=== PATIENT | female | born 1950 | race African-American/Black ===

== ENCOUNTER 2018-05-29 15:49 | Emergency (ER) | payer MEDICARE, MEDICAID ==
[~2018-05-29] VITALS: Ht 162.6 cm; Wt 63.0 kg
[~2018-05-29 15:49] MED LIST: AZIT250T12 PO; TRAM50TA PO
[2018-05-29 23:06] VITALS: BP 165/99
== END 2018-05-30 00:49 | disposition left against medical advice (07) ==
LOC: ER 15:49
DX: Z53.21 Procedure and treatment not carried out due to patient leaving prior to being seen by health care provider (principal)

== ENCOUNTER 2021-05-14 13:44 | Inpatient (IN) | payer BC, MEDICAID ==
[~2021-05-14] VITALS: Ht 162.6 cm; Wt 78.0 kg
[2021-05-14] MEDS ORDERED: LIDOCAINE HCL 4% CREAM 76GM TUBE TP STA (14:08)
[2021-05-14] MEDS ORDERED: SODIUM CHLORIDE 0.9% 1,000 ML IV ONE (14:15)
[2021-05-14 15:04] LABS: HEMOGLOBIN. 7.6 g/dL (12.0-16.0); MEAN CORPUSCULAR HEMOGLOBIN 26.7 pg (28.0-32.0); MEAN CORPUSCULAR VOLUME 84.4 fL (81.0-99.0); MEAN PLATELET VOLUME 8.3 fl (7.4-10.4); PLATELET 391 x1000/uL (130-400); RED BLOOD CELL COUNT 2.84 mill/uL (4.2-5.4); RED CELL DISTRIBUTION WIDTH 20.8 % (11.6-14.6)
[2021-05-14 15:51] LABS: CHLORIDE 99 mEq/L (98-107)
[2021-05-14 16:20] LABS: PLATELET ESTIMATE NORMAL
[2021-05-14 17:33] LABS: HEPATITIS B SURFACE ANTIGEN NEGATIVE
[2021-05-14] MEDS ORDERED: FUROSEMIDE 100MG/10ML VIAL IV STA (19:04)
[2021-05-14] MEDS ORDERED: DEXTROSE 50% WATER 50ML SYRINGE IV NR (19:15)
[2021-05-14] MEDS ORDERED: SODIUM BICARBONATE 8.4% 1 MEQ/ML 50ML SYR IV NR (19:15)
[2021-05-14] MEDS ORDERED: INSULIN REGULAR (HUMULIN R) 300UNITS/3ML VIAL IV NR (19:15)
[2021-05-14] MEDS ORDERED: SODIUM POLYSTYRENE SULFONATE 15 G/60 ML BOT PO NR (19:15)
[2021-05-14] MEDS ORDERED: ALBUTEROL (0.083%) 2.5MG/3ML NEB HHN NR (19:15)
[2021-05-15] MEDS ORDERED: CEFTRIAXONE 1 G PREMIX 50 ML IV SCH
[2021-05-15] MEDS ORDERED: CEFTRIAXONE 1,000 MG in DEXTROSE 5% WATER 50 ML IV SCH (00:30)
[2021-05-15] MEDS ORDERED: VANCOMYCIN 1500MG in DEXTROSE 5% WATER 250ML IV NR (01:00)
[2021-05-15] MEDS ORDERED: CEFTRIAXONE SODIUM 1 G/VIAL ONE (01:03)
[2021-05-15] MEDS: PANTOPRAZOLE 40MG DR TABLET PO SCH (07:35)
[2021-05-15 08:00] VITALS: BP 112/60
[2021-05-15 11:01] VITALS: BP 112/60
[2021-05-15 12:00] VITALS: BP 131/73
[2021-05-15] MEDS ORDERED: CARV25TA47 PO (13:58)
[2021-05-15] MEDS ORDERED: SIMV-46 PO (14:00)
[2021-05-15] MEDS ORDERED: MECL-217 MT (14:11)
[2021-05-15] MEDS ORDERED: FURO80TA3 PO (14:11)
[2021-05-15] MEDS ORDERED: DILT180T11 PO (14:11)
[2021-05-15] MEDS ORDERED: METR-167 MT (14:13)
[2021-05-15] MEDS ORDERED: MONT10TA32 MT (14:14)
[2021-05-15] MEDS ORDERED: MECL-159 PO (14:16)
[2021-05-15] MEDS ORDERED: RIZA10TA97 PO (14:29)
[2021-05-15] MEDS ORDERED: *PATIENT'S OWN MEDICATION STORAGE XX SCH (14:30)
[2021-05-15 16:00] VITALS: BP 99/58
[2021-05-15 17:40] LABS: HEMATOCRIT. 23.2 % (36.0-48.0); HEMOGLOBIN. 7.5 g/dL (12.0-16.0); MEAN CORPUSCULAR HEMOGLOBIN 27.6 pg (28.0-32.0); MEAN CORPUSCULAR VOLUME 85.6 fL (81.0-99.0); MEAN PLATELET VOLUME 8.3 fl (7.4-10.4); PLATELET 432 x1000/uL (130-400); RED BLOOD CELL COUNT 2.71 mill/uL (4.2-5.4)
[2021-05-15 17:48] LABS: INR 1.3; PROTHROMBIN TIME 13.3 sec (9.6-11.0)
[2021-05-15 17:54] LABS: CREATINE KINASE MB FRACTION 2.4 ng/mL (0.5-3.6)
[2021-05-15 18:02] LABS: PLATELET ESTIMATE INCREASED
[2021-05-15 20:29] VITALS: BP 114/54
[2021-05-15] MEDS: CEFTRIAXONE 1,000 MG in DEXTROSE 5% WATER 50 ML IV SCH (23:39)
[2021-05-16] VITALS: BP 121/61
[2021-05-16 04:00] VITALS: BP 129/62
[2021-05-16 06:03] LABS: HEMOGLOBIN. 7.2 g/dL (12.0-16.0); MEAN CORPUSCULAR HEMOGLOBIN 26.5 pg (28.0-32.0); MEAN CORPUSCULAR VOLUME 84.8 fL (81.0-99.0); MEAN PLATELET VOLUME 8.5 fl (7.4-10.4); PLATELET 456 x1000/uL (130-400); RED BLOOD CELL COUNT 2.71 mill/uL (4.2-5.4)
[2021-05-16] MEDS: PANTOPRAZOLE 40MG DR TABLET PO SCH (06:42)
[2021-05-16 08:00] VITALS: BP_SYST 124; BP_SYST 88; BP_DIAS 54; BP_DIAS 57
[2021-05-16] MEDS ORDERED: HEPARIN 5000 UNITS/ML VIAL SUBCUT SCH (09:00)
[2021-05-16 11:32] LABS: BG BASE EXCESS -1.2 mmol/L (-2.0-2.0); BG CARBOXYHEMOGLOBIN 0.1 % (0.5-1.5); BG DEOXYHEMOGLOBIN 3.9 % (0.0-5.0); BG FRACTION INSPIRED OXYGEN 30; BG HCO3 ACT 24.5 mmol/L (22.0-26.0); BG METHEMOGLOBIN 0.6 % (0.0-1.5); BG OXYGEN SATURATION 96.1 % (92.0-98.5); BG OXYHEMOGLOBIN 95.4 % (94.0-97.0); BG PH 7.344 (7.350-7.450); BG PO2 95.9 mmHg (75.0-100.0); BG SAMPLE SITE RIGHT RADIAL; BG TOTAL HEMOGLOBIN 8.1 g/dL (12.0-18.0); BG VENT MODE NASAL CANNULA
[2021-05-16 12:00] VITALS: BP 135/63
[2021-05-16] MEDS ORDERED: ACETAMINOPHEN 325MG TABLET PO PRN (12:00)
[2021-05-16] MEDS ORDERED: LIDOCAINE HCL 1% 20ML VIAL (Pyxis) INJ ONE (14:23)
[2021-05-16] MEDS ORDERED: LIDOCAINE HCL 1% 30ML VIAL (10MG/ML) ONE (14:29)
[2021-05-16 15:09] LABS: PLATELET ESTIMATE SLIGHTLY INCREASED
[2021-05-16] MEDS ORDERED: BISACODYL 10MG SUPP PR PRN (15:30)
[2021-05-16] MEDS ORDERED: LORAZEPAM 2MG/ML CPJ IV PRN (15:30)
[2021-05-16] MEDS ORDERED: ONDANSETRON HCL 4MG/2ML INJ IV PRN (15:30)
[2021-05-16] MEDS ORDERED: IPRATROPIUM/ALBUTEROL 0.5-3(2.5)MG/3ML NEB HHN PRN (15:30)
[2021-05-16] MEDS ORDERED: DIPHENHYDRAMINE 50MG/ML VIAL IV PRN (15:30)
[2021-05-16 16:00] VITALS: BP 133/75
[2021-05-16] MEDS: PANTOPRAZOLE SODIUM 40 MG/VIAL IV SCH (16:11)
[2021-05-16 17:18] LABS: HEMATOCRIT 24.2 % (36.0-48.0); HEMOGLOBIN 7.5 g/dL (12.0-16.0)
[2021-05-16 20:00] VITALS: BP 128/57
[2021-05-16] MEDS: CARVEDILOL 6.25 MG TABLET PO SCH (21:37)
[2021-05-16] MEDS: EPOETIN ALFA-EPBX 10,000 UNIT/ML VIAL SUBCUT SCH (21:38)
[2021-05-16] MEDS ORDERED: VANCOMYCIN 750MG PREMIX 150 ML IV NR (22:00)
[2021-05-16] MEDS: CEFTRIAXONE 1,000 MG in DEXTROSE 5% WATER 50 ML IV SCH (23:42)
[2021-05-17] VITALS: BP 127/66
[2021-05-17 04:00] VITALS: BP 127/63
[2021-05-17 08:09] LABS: HEMATOCRIT. 24.5 % (36.0-48.0); HEMOGLOBIN. 7.7 g/dL (12.0-16.0); MEAN CORPUSCULAR HEMOGLOBIN 26.4 pg (28.0-32.0); MEAN CORPUSCULAR VOLUME 84.6 fL (81.0-99.0); PLATELET 497 x1000/uL (130-400); RED CELL DISTRIBUTION WIDTH 21.1 % (11.6-14.6)
[2021-05-17 08:17] VITALS: BP_SYST 126; BP_SYST 155; BP_DIAS 69; BP_DIAS 73
[2021-05-17] MEDS: CARVEDILOL 6.25 MG TABLET PO SCH (08:19)
[2021-05-17] MEDS: PANTOPRAZOLE SODIUM 40 MG/VIAL IV SCH ×2 (08:19→22:02)
[2021-05-17 08:24] LABS: PHOSPHORUS 8.3 mg/dL (2.5-4.9)
[2021-05-17 10:24] LABS: PLATELET ESTIMATE INCREASED
[2021-05-17] MEDS ORDERED: CARVEDILOL 3.125 MG TABLET PO NR (11:15)
[2021-05-17 12:00] VITALS: BP_SYST 132; BP_SYST 136; BP_DIAS 59; BP_DIAS 60
[2021-05-17] MEDS ORDERED: CALCIUM ACETATE 667MG CAPSULE PO SCH (12:15)
[2021-05-17 16:00] VITALS: BP_SYST 135; BP_SYST 149; BP_DIAS 62; BP_DIAS 68
[2021-05-17] MEDS ORDERED: IPRATROPIUM/ALBUTEROL 0.5-3(2.5)MG/3ML NEB HHN NR (16:03)
[2021-05-17 16:30] LABS: BG BASE EXCESS -1.7 mmol/L (-2.0-2.0); BG CARBOXYHEMOGLOBIN 0.3 % (0.5-1.5); BG DEOXYHEMOGLOBIN 1.3 % (0.0-5.0); BG FRACTION INSPIRED OXYGEN 36; BG HCO3 ACT 23.8 mmol/L (22.0-26.0); BG METHEMOGLOBIN 0.5 % (0.0-1.5); BG OXYGEN SATURATION 98.7 % (92.0-98.5); BG OXYHEMOGLOBIN 97.9 % (94.0-97.0); BG PCO2 43.7 mmHg (35.0-45.0); BG PH 7.354 (7.350-7.450); BG PO2 155.3 mmHg (75.0-100.0); BG SAMPLE SITE RIGHT BRACHIAL; BG TOTAL HEMOGLOBIN 8.3 g/dL (12.0-18.0); BG VENT MODE NASAL CANNULA
[2021-05-17 17:28] LABS: HEMATOCRIT 24.5 % (36.0-48.0); HEMOGLOBIN 7.8 g/dL (12.0-16.0)
[2021-05-17 17:58] LABS: CREATINE KINASE MB FRACTION 2.2 ng/mL (0.5-3.6)
[2021-05-17 20:00] VITALS: BP 149/86
[2021-05-17] MEDS ORDERED: CARVEDILOL 12.5MG TABLET PO SCH (21:00)
[2021-05-17] MEDS: IPRATROPIUM/ALBUTEROL 0.5-3(2.5)MG/3ML NEB HHN SCH (21:05)
[2021-05-17] MEDS: CALCIUM ACETATE 667MG CAPSULE PO SCH (22:02)
[2021-05-17] MEDS: METOPROLOL TARTRATE 25MG TABLET PO SCH (22:02)
[2021-05-18] VITALS (10 sets, daily range): BP systolic 108–157; BP diastolic 60–87
[2021-05-18] MEDS: CEFTRIAXONE 1,000 MG in DEXTROSE 5% WATER 50 ML IV SCH ×2 (00:09→23:58)
[2021-05-18] MEDS: IPRATROPIUM/ALBUTEROL 0.5-3(2.5)MG/3ML NEB HHN SCH ×4 (01:40→21:17)
[2021-05-18 07:58] LABS: HEMATOCRIT. 22.7 % (36.0-48.0); HEMOGLOBIN. 7.1 g/dL (12.0-16.0); MEAN CORPUSCULAR HEMOGLOBIN 26.3 pg (28.0-32.0); MEAN CORPUSCULAR VOLUME 84.2 fL (81.0-99.0); MEAN PLATELET VOLUME 8.3 fl (7.4-10.4); PLATELET 459 x1000/uL (130-400); RED CELL DISTRIBUTION WIDTH 20.7 % (11.6-14.6)
[2021-05-18] MEDS: METOPROLOL TARTRATE 25MG TABLET PO SCH ×2 (08:20→21:33)
[2021-05-18] MEDS: CALCIUM ACETATE 667MG CAPSULE PO SCH ×3 (08:20→17:41)
[2021-05-18] MEDS: PANTOPRAZOLE SODIUM 40 MG/VIAL IV SCH ×2 (08:20→17:00)
[2021-05-18 08:35] LABS: PHOSPHORUS 6.4 mg/dL (2.5-4.9)
[2021-05-18 09:18] LABS: PLATELET ESTIMATE INCREASED
[2021-05-18 11:58] LABS: BG BASE EXCESS 1.4 mmol/L (-2.0-2.0); BG CARBOXYHEMOGLOBIN 0.3 % (0.5-1.5); BG DEOXYHEMOGLOBIN 4.5 % (0.0-5.0); BG HCO3 ACT 25.8 mmol/L (22.0-26.0); BG METHEMOGLOBIN 0.3 % (0.0-1.5); BG OXYGEN SATURATION 95.5 % (92.0-98.5); BG OXYHEMOGLOBIN 94.9 % (94.0-97.0); BG PCO2 39.8 mmHg (35.0-45.0); BG PH 7.429 (7.350-7.450); BG PO2 80.9 mmHg (75.0-100.0); BG SAMPLE SITE RIGHT BRACHIAL; BG VENT MODE NASAL CANNULA
[2021-05-18 23:51] LABS: HEMATOCRIT 25.5 % (36.0-48.0); HEMOGLOBIN 8.2 g/dL (12.0-16.0)
[2021-05-19] VITALS: BP 143/66
[2021-05-19 00:05] LABS: INR 1.3; PROTHROMBIN TIME 13.3 sec (9.6-11.0)
[2021-05-19] MEDS: IPRATROPIUM/ALBUTEROL 0.5-3(2.5)MG/3ML NEB HHN SCH ×4 (01:35→20:05)
[2021-05-19 04:00] VITALS: BP 140/65
[2021-05-19 06:30] LABS: HEMATOCRIT. 26.5 % (36.0-48.0); HEMOGLOBIN. 8.5 g/dL (12.0-16.0); MEAN CORPUSCULAR HEMOGLOBIN 26.6 pg (28.0-32.0); MEAN PLATELET VOLUME 8.4 fl (7.4-10.4); PLATELET 464 x1000/uL (130-400); RED BLOOD CELL COUNT 3.19 mill/uL (4.2-5.4); RED CELL DISTRIBUTION WIDTH 20.9 % (11.6-14.6)
[2021-05-19 06:56] LABS: PHOSPHORUS 6.2 mg/dL (2.5-4.9)
[2021-05-19] MEDS: CALCIUM ACETATE 667MG CAPSULE PO SCH ×3 (07:15→17:50)
[2021-05-19 08:00] VITALS: BP 157/91
[2021-05-19] MEDS: PANTOPRAZOLE SODIUM 40 MG/VIAL IV SCH ×2 (09:00→17:49)
[2021-05-19] MEDS: METOPROLOL TARTRATE 25MG TABLET PO SCH ×2 (09:00→21:37)
[2021-05-19] MEDS: FOLIC ACID 1MG TABLET PO SCH (09:00)
[2021-05-19 12:00] VITALS: BP 155/80
[2021-05-19] MEDS ORDERED: IOHEXOL-350 100 ML BOTTLE ONE (12:13)
[2021-05-19 16:00] VITALS: BP 166/84
[2021-05-19 16:29] LABS: PLATELET ESTIMATE INCREASED
[2021-05-19] MEDS ORDERED: VANCOMYCIN 1GM PMX (XELLIA) 200 ML IV NR (18:00)
[2021-05-19 20:00] VITALS: BP 160/95
[2021-05-19] MEDS: EPOETIN ALFA-EPBX 10,000 UNIT/ML VIAL SUBCUT SCH (21:37)
[2021-05-19] MEDS: CEFTRIAXONE 1,000 MG in DEXTROSE 5% WATER 50 ML IV SCH (23:32)
[2021-05-20] VITALS: BP 165/80
[2021-05-20] MEDS: IPRATROPIUM/ALBUTEROL 0.5-3(2.5)MG/3ML NEB HHN SCH ×4 (02:14→20:01)
[2021-05-20] MEDS: CALCIUM ACETATE 667MG CAPSULE PO SCH ×3 (06:47→17:15)
[2021-05-20 08:00] VITALS: BP 139/84
[2021-05-20] MEDS: FOLIC ACID 1MG TABLET PO SCH (09:13)
[2021-05-20] MEDS: PANTOPRAZOLE SODIUM 40 MG/VIAL IV SCH ×2 (09:13→18:04)
[2021-05-20] MEDS: METOPROLOL TARTRATE 25MG TABLET PO SCH ×2 (09:13→21:09)
[2021-05-20 09:22] LABS: BASOPHILS % 0.4 % (0.0-2.0); EOSINOPHILS % 2.7 % (0.0-5.0); HEMATOCRIT. 26.2 % (36.0-48.0); HEMOGLOBIN. 8.4 g/dL (12.0-16.0); LYMPHOCYTES % 9.2 % (20.0-50.0); MEAN CORPUSCULAR HEMOGLOBIN 26.5 pg (28.0-32.0); MEAN CORPUSCULAR VOLUME 82.8 fL (81.0-99.0); MEAN PLATELET VOLUME 8.4 fl (7.4-10.4); MONOCYTES % 6.3 % (2.0-8.0); NEUTROPHILS % 81.4 % (40.0-76.0); PLATELET 426 x1000/uL (130-400); RED BLOOD CELL COUNT 3.16 mill/uL (4.2-5.4); RED CELL DISTRIBUTION WIDTH 20.7 % (11.6-14.6)
[2021-05-20 09:45] LABS: PHOSPHORUS 5.7 mg/dL (2.5-4.9)
[2021-05-20 12:00] VITALS: BP 151/71
[2021-05-20 16:00] VITALS: BP 140/75
[2021-05-20 20:01] VITALS: BP 144/81
[2021-05-21] VITALS: BP 135/60
[2021-05-21] MEDS: IPRATROPIUM/ALBUTEROL 0.5-3(2.5)MG/3ML NEB HHN SCH ×2 (02:18→14:26)
[2021-05-21 04:00] VITALS: BP 140/78
[2021-05-21] MEDS: CALCIUM ACETATE 667MG CAPSULE PO SCH ×4 (06:50→16:45)
[2021-05-21 08:00] VITALS: BP 181/99
[2021-05-21] MEDS: FOLIC ACID 1MG TABLET PO SCH (09:04)
[2021-05-21] MEDS: PANTOPRAZOLE SODIUM 40 MG/VIAL IV SCH ×2 (09:05→16:45)
[2021-05-21] MEDS: METOPROLOL TARTRATE 25MG TABLET PO SCH (09:05)
[2021-05-21 11:15] LABS: BASOPHILS % 0.3 % (0.0-2.0); EOSINOPHILS % 3.5 % (0.0-5.0); HEMATOCRIT. 27.5 % (36.0-48.0); HEMOGLOBIN. 8.9 g/dL (12.0-16.0); LYMPHOCYTES % 9.3 % (20.0-50.0); MEAN CORPUSCULAR HEMOGLOBIN 26.7 pg (28.0-32.0); MEAN CORPUSCULAR VOLUME 82.8 fL (81.0-99.0); MEAN PLATELET VOLUME 8.3 fl (7.4-10.4); MONOCYTES % 6.1 % (2.0-8.0); NEUTROPHILS % 80.8 % (40.0-76.0); PLATELET 411 x1000/uL (130-400); RED BLOOD CELL COUNT 3.33 mill/uL (4.2-5.4)
[2021-05-21 11:39] LABS: PHOSPHORUS 6.1 mg/dL (2.5-4.9)
[2021-05-21 12:15] VITALS: BP 171/72
[2021-05-21] MEDS ORDERED: ALBU90AE INH (13:10)
[2021-05-21] MEDS ORDERED: PANT40SU MT (13:10)
[2021-05-21] MEDS ORDERED: CALC667T6 MT (13:10)
[2021-05-21] MEDS ORDERED: METO-539 MT (13:10)
[2021-05-21] MEDS ORDERED: FOLI-43 MT (13:10)
[2021-05-21] MEDS ORDERED: METOPROLOL TARTRATE 25MG TABLET PO NR (13:15)
[2021-05-21 15:44] VITALS: BP 137/87
[2021-05-21 16:00] VITALS: BP 137/87
== END 2021-05-21 18:40 | disposition home or self-care (01) | DRG 280 ==
LOC: ER 13:44 → MICUSO 18:56 → EDBEDREQSVC 23:02 → 5WST 05-15 09:42 → 7EST 05-16 17:17 → 5WST 05-17 09:50
PROVIDERS: ADMIT Internal Medicine; ATTEND Internal Medicine
PROC: 5A1D70Z Performance of Urinary Filtration, Intermittent, Less than 6 Hours Per Day (ICD-10-PCS; principal; 2021-05-14)
PROC: 5A1D70Z Performance of Urinary Filtration, Intermittent, Less than 6 Hours Per Day (ICD-10-PCS; 2021-05-16)
PROC: 02HV33Z Insertion of Infusion Device into Superior Vena Cava, Percutaneous Approach (ICD-10-PCS; 2021-05-16)
PROC: B5181ZA Fluoroscopy of Superior Vena Cava using Low Osmolar Contrast, Guidance (ICD-10-PCS; 2021-05-16)
PROC: B548ZZA Ultrasonography of Superior Vena Cava, Guidance (ICD-10-PCS; 2021-05-16)
PROC: 5A1D70Z Performance of Urinary Filtration, Intermittent, Less than 6 Hours Per Day (ICD-10-PCS; 2021-05-17)
PROC: 5A1D70Z Performance of Urinary Filtration, Intermittent, Less than 6 Hours Per Day (ICD-10-PCS; 2021-05-18)
PROC: 30233N1 Transfusion of Nonautologous Red Blood Cells into Peripheral Vein, Percutaneous Approach (ICD-10-PCS; 2021-05-18)
PROC: 5A1D70Z Performance of Urinary Filtration, Intermittent, Less than 6 Hours Per Day (ICD-10-PCS; 2021-05-20)
DX: I21.4 Non-ST elevation (NSTEMI) myocardial infarction (principal); N18.6 End stage renal disease; J96.91 Respiratory failure, unspecified with hypoxia; G93.40 Encephalopathy, unspecified; I13.2 Hypertensive heart and chronic kidney disease with heart failure and with stage 5 chronic kidney disease, or end stage renal disease; I50.32 Chronic diastolic (congestive) heart failure; N25.81 Secondary hyperparathyroidism of renal origin; I47.2 Ventricular tachycardia; D64.9 Anemia, unspecified; D72.829 Elevated white blood cell count, unspecified; E11.22 Type 2 diabetes mellitus with diabetic chronic kidney disease; E66.9 Obesity, unspecified; E78.5 Hyperlipidemia, unspecified; E87.5 Hyperkalemia; I25.10 Atherosclerotic heart disease of native coronary artery without angina pectoris; K52.9 Noninfective gastroenteritis and colitis, unspecified; E83.39 Other disorders of phosphorus metabolism; G90.9 Disorder of the autonomic nervous system, unspecified; I49.9 Cardiac arrhythmia, unspecified; J45.909 Unspecified asthma, uncomplicated; I27.29 Other secondary pulmonary hypertension; I08.1 Rheumatic disorders of both mitral and tricuspid valves; Z20.822 Contact with and (suspected) exposure to COVID-19; K80.20 Calculus of gallbladder without cholecystitis without obstruction; F41.9 Anxiety disorder, unspecified; W01.0XXA Fall on same level from slipping, tripping and stumbling without subsequent striking against object, initial encounter; M25.561 Pain in right knee; R26.2 Difficulty in walking, not elsewhere classified; R55 Syncope and collapse; R91.8 Other nonspecific abnormal finding of lung field; Z88.5 Allergy status to narcotic agent; Z87.891 Personal history of nicotine dependence; Z90.710 Acquired absence of both cervix and uterus; Z99.2 Dependence on renal dialysis; Y93.89 Activity, other specified; Y92.89 Other specified places as the place of occurrence of the external cause; Y99.8 Other external cause status; Z68.29 Body mass index [BMI] 29.0-29.9, adult
CPT/HCPCS: 36415; 36573; 36600; 71045; 71275; 72170; 73562; 73590; 73700; 74176; 78580; 80048; 80053; 80076; 80202; 82140; 82270; 82375; 82550; 82553; 82607; 82728; 82746; 82805; 82962; 83540; 83550; 83605; 83735; 83880; 84100; 84145; 84443; 84484; 85014; 85018; 85025; 85044; 85049; 85384; 86705; 86709; 86803; 86850; 86900; 86920; 87015; 87045; 87340; 87426; 87427; 87449; 89055; 93005; 93306; 93880; 93970; 97110; 97116; 97162; 99285; C1725; C9113; J0696; J0885; J1644; J3370; J3490; J7030; J7040; J7060; P9016; Q9967; U0003; U0005